=== PATIENT | female | born 1975 | race Caucasian/White ===

== ENCOUNTER → 2021-07-20 14:39 | Outpatient (CLI) | payer MEDICAID, SELFPAY ==
[2021-07-20 14:59] LABS: Amphetamine/Metha Screen,Urine Negative ng/ml (<1000); Barbiturates Screen,Urine Negative ng/ml (<200)
[2021-07-20 15:00] LABS: Benzodiazepines Screen,Urine Negative ng/ml (<200)
[2021-07-20 15:01] LABS: Cannabinoid Screen,Urine Negative ng/ml (<50); Cocaine Screen,Urine Negative ng/ml (<300)
[2021-07-20 15:02] LABS: Methadone Screen,Urine Negative ng/ml (<300)
[2021-07-20 15:03] LABS: Opiate Screen,Urine Negative ng/ml (<300); Phencyclidine Screen,Urine Negative ng/ml (<25)
== END ==
PROVIDERS: Visit Provider Family Medicine
DX: F41.9 Anxiety disorder, unspecified (principal)
CPT/HCPCS: 80305

== ENCOUNTER → 2021-11-26 16:58 | Outpatient (CLI) | payer MEDICAID, SELFPAY ==
[2021-11-26 19:10] LABS: Amphetamine/Metha Screen,Urine Negative ng/ml (<1000)
[2021-11-26 19:11] LABS: Barbiturates Screen,Urine Negative ng/ml (<200); Benzodiazepines Screen,Urine Positive ng/ml (<200)
[2021-11-26 19:12] LABS: Cannabinoid Screen,Urine Negative ng/ml (<50)
[2021-11-26 19:13] LABS: Cocaine Screen,Urine Negative ng/ml (<300); Methadone Screen,Urine Negative ng/ml (<300)
[2021-11-26 19:14] LABS: Opiate Screen,Urine Negative ng/ml (<300)
[2021-11-26 19:15] LABS: Phencyclidine Screen,Urine Negative ng/ml (<25)
== END ==
PROVIDERS: Visit Provider Family Medicine
DX: F41.9 Anxiety disorder, unspecified (principal)
CPT/HCPCS: 80305

== ENCOUNTER → 2021-12-09 12:54 | Outpatient (CLI) | payer MEDICAID, SELFPAY ==
--- NOTE | 2021-12-09 12:54 | CT_ITS ---
FINAL REPORT TECHNIQUE: Axial CT images were performed from the lung apices through the upper abdomen. Coronal reformats were submitted. This study was performed with techniques to keep radiation doses as low as reasonably achievable (ALARA). Individualized dose reduction techniques using automated exposure control or adjustment of mA and/or kV according to the patient's size were employed. CLINICAL HISTORY: pulmonary nodules smoker FINDINGS: There is no axillary adenopathy. There are mild borderline sized mediastinal and hilar nodes. Heart size is normal. There is a small pericardial effusion. No pleural effusion is identified. Limited images of the upper abdomen are unremarkable. There is mild emphysema. There are multiple bilateral noncalcified pulmonary nodules. There is a lateral right upper lobe nodule measuring 6 mm. There is a pleural-based nodule in the left lower lobe measuring 6 mm. Multiple other bilateral nodules are identified. There are calcified granulomas in the right lower lobe. Postoperative changes are seen of the right shoulder. IMPRESSION: Bilateral pulmonary nodules which are nonspecific. Recommend follow-up CT in 6 months. Reviewed, Interpreted and Dictated by Cam Sommer III, MD Transcribed by Ana Cade Authenticated by Cam Sommer III, MD on 12/09/2021 03:50:[address] [facility]
== END ==
PROVIDERS: PCP Nurse Practitioner Family; Visit Provider Family Medicine
DX: R91.8 Other nonspecific abnormal finding of lung field (principal)
CPT/HCPCS: 71250

== ENCOUNTER → 2022-03-03 09:05 | Outpatient (CLI) | payer MEDICAID, SELFPAY ==
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
== END ==
PROVIDERS: PCP Nurse Practitioner Family; Visit Provider Orthopaedic Surgery
DX: M25.511 Pain in right shoulder (principal)
CPT/HCPCS: 73030

== ENCOUNTER → 2022-05-10 13:44 | Outpatient (CLI) | payer MEDICAID, SELFPAY ==
--- NOTE | 2022-05-10 13:45 | CA_ITS ---
FINAL REPORT TECHNIQUE: Color Doppler, duplex Doppler and compression sonography of the right lower extremity venous system was performed. CLINICAL HISTORY: EDEMA FINDINGS: There is no evidence of deep venous thrombosis from the level of the groin to the calf. The veins are patent and compressible. IMPRESSION: No evidence of deep venous thrombosis right lower extremity. Reviewed, Interpreted and Dictated by Cam Sommer III, MD Transcribed by Lor Miller Authenticated and [facility]
== END ==
PROVIDERS: PCP Nurse Practitioner Family; Visit Provider Family Medicine
DX: M79.604 Pain in right leg (principal); M79.89 Other specified soft tissue disorders
CPT/HCPCS: 93971

== ENCOUNTER → 2022-05-17 13:25 | Outpatient (CLI) | payer MEDICAID, SELFPAY ==
--- NOTE | 2022-05-17 13:39 | XR_ITS ---
FINAL REPORT CLINICAL HISTORY: shoulder pain FINDINGS: RIGHT SHOULDER Three views were obtained. There is no acute fracture or dislocation. There is mild acromioclavicular and glenohumeral joint degenerative change. There are postoperative changes in the proximal humerus. No soft tissue abnormality is identified. IMPRESSION: Mild degenerative changes with no acute process. Reviewed, Interpreted and Dictated by Cam Sommer III, MD Transcribed by Ana Cade Authenticated and [facility]
[2022-05-17 15:59] LABS: Basophils # 0.1 K/mm3 (0-0.2); Basophils % 1.5 % (0.1-2.0); Eosinophils # 0.1 K/mm3 (0.0-0.4); Eosinophils % 0.9 % (0.1-12.0); Hematocrit 56.2 % (37.0-47.0); Hemoglobin 17.8 g/dL (12.2-16.2); Lymphocytes # 1.9 K/mm3 (0.7-4.5); Lymphocytes % 20.8 % (10-50); Mean Corpuscular HGB Conc 31.6 g/dL (31.8-35.4); Mean Corpuscular Hemoglobin 31.7 pg (27.0-31.2); Mean Corpuscular Volume 100.3 fl (81-99); Mean Platelet Volume 8.6 fl (7.4-10.4); Monocytes # 0.6 K/mm3 (0.1-1.0); Monocytes % 6.3 % (1.7-9.3); Neutrophils # 6.6 K/mm3 (1.8-7.8); Neutrophils % 70.5 % (37.0-80.0); Platelet Count 299 K/mm3 (142-424); Red Cell Distribution Width 15.8 % (11.5-17.5); White Blood Count 9.3 K/mm3 (4.8-10.8)
[2022-05-17 16:49] LABS: C-Reactive Protein 3.5 mg/L (0-4)
[2022-05-17 19:28] LABS: Erythrocyte Sedimentation Rate 1 mm/hr (0-20)
== END ==
PROVIDERS: Orthopaedic Surgery; PCP Nurse Practitioner Family; Visit Provider Physician Assistant Surgical
DX: M25.511 Pain in right shoulder (principal); G56.01 Carpal tunnel syndrome, right upper limb
CPT/HCPCS: 36415; 73030; 85025; 85651; 86140

== ENCOUNTER 2024-04-04 12:37 | Outpatient (CLI) | payer MEDICAID, SELFPAY ==
--- NOTE | 2024-04-04 12:59 | CA_ITS ---
FINAL REPORT TECHNIQUE: Color Doppler, duplex Doppler and compression sonography of the right lower extremity venous system was performed. CLINICAL HISTORY: calf tenderness, edema FINDINGS: There is no evidence of deep venous thrombosis from the level of the groin to the calf. The veins are patent and compressible. IMPRESSION: No evidence of deep venous thrombosis right lower extremity. Reviewed, Interpreted and Dictated by Cam Sommer III, MD Transcribed by Dayanara Matta Authenticated and [facility]
== END 2024-04-04 23:59 | disposition home or self-care (01) ==
LOC: RT 12:37
PROVIDERS: PCP Family Medicine; Visit Provider Family Medicine
DX: M79.89 Other specified soft tissue disorders (principal); R60.9 Edema, unspecified
CPT/HCPCS: 93971

== ENCOUNTER 2025-03-20 11:06 | Outpatient (CLI) | payer MEDICAID, SELFPAY ==
[2025-03-20 12:10] VITALS: BMI 30.1
--- NOTE | 2025-03-20 12:22 | ECG_ITS ---
APPROVED REPORT Exam: Resting ECG HR:92 bpm ECG Measurements Heart Rate 92 AXES SD 175 P 57 QRSd 72 QRS 98 QT 349 T 61 QTc 399 Conclusion SINUS RHYTHM ATRIAL ABNORMALITY BORDERLINE RIGHT AXIS DEVIATION [QRS AXIS > 90] LOW QRS VOLTAGE IN PRECORDIAL LEADS [QRS DEFLECTION < 1.0 mV IN CHEST LEADS] BORDERLINE ECG UNCONFIRMED REPORT Electronically signed by : Clint Pink MD 03/23/2025 08:06:51
[2025-03-20 12:41] LABS: Basophils % 0.5 % (0.1-2.0); Eosinophils # 0.1 Kmm3 (0.0-0.4); Eosinophils % 1.2 % (0.1-12.0); Hematocrit 45.6 % (37.0-47.0); Hemoglobin 15.3 g/dL (12.2-16.2); Lymphocytes # 1.8 K/mm3 (0.7-4.5); Mean Corpuscular HGB Conc 33.6 g/dL (31.8-35.4); Mean Corpuscular Volume 92.5 fl (81-99); Mean Platelet Volume 10.2 fl (7.4-10.4); Monocytes # 0.4 K/mm3 (0.1-1.0); Monocytes % 4.8 % (1.7-9.3); Neutrophils % 70.9 % (37.0-80.0); Nucleated Red Blood Cells # 0 10^3/uL; Nucleated Red Blood Cells % 0 %; Platelet Count 218 K/mm3 (142-424); Red Blood Count 4.93 M/mm3 (4.20-5.40); Red Cell Distribution Width 13.7 % (11.5-17.5); Red Cell Distribution Width-SD 46.4 fL; White Blood Count 8.4 K/mm3 (4.8-10.8)
[2025-03-20 12:48] LABS: Chloride 109 mmol/L (98-107); Potassium 3.5 mmoL/L (3.5-5.1); Sodium 139 mmol/L (136-145)
[2025-03-20 12:51] LABS: Blood Urea Nitrogen 7 mg/dl (7-17); Creatinine Clearance Estimated 118 mL/min (50-200); Estimated Glomerular Filt Rate 76 ml/min (>60); GFR (African American) 92 ML/MIN (>60)
[2025-03-20 12:52] LABS: Anion Gap 9.5 mEq/L (5-15); Calcium 9.5 mg/dl (8.4-10.2); Carbon Dioxide 24 mmol/L (22.0-30.0); Glucose 87 mg/dl (74-100)
== END 2025-03-20 23:59 | disposition home or self-care (01) ==
LOC: PREOP 11:06
PROVIDERS: PCP Family Medicine; Visit Provider Surgery
DX: L72.3 Sebaceous cyst (principal); R94.31 Abnormal electrocardiogram [ECG] [EKG]
CPT/HCPCS: 80048; 85025; 93005

== ENCOUNTER 2025-03-24 08:20 | Day surgery (SDC) | payer MEDICAID, SELFPAY ==
[2025-03-20 14:29] VITALS: BMI 30.1
[2025-03-24] VITALS (11 sets, daily range): BP systolic 110–136; BP diastolic 51–87; PULSE 74–90; RESP 14–18; TEMP 36.2–38; O2SAT 92–98
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
[2025-03-24] MEDS: CEFAZOLIN SODIUM 2 GM in 0.9 % SODIUM CHLORIDE 100 ML IV (09:15)
[2025-03-24] MEDS: ROPIVACAINE 0.5% 30ML VIAL 150 MG (09:31)
[2025-03-24] MEDS: LIDOCAINE 1% 20ML MDV 20 ML (09:32)
--- NOTE | 2025-03-24 09:46 | P.OP_ITS ---
Date of procedure: 03/24/25 Pre-op Diagnosis:: Right axillary cyst Post-op Diagnosis:: Same Procedure performed:: Excision of right axillary inclusion cyst (excisional length 1.5 cm) with intermediate complexity closure Surgeon:: Cam Mcginnis MD UTILITY TELLER:: Harjinder Rouse Anesthesia: LMA Estimated blood loss (mL): 2 Operative findings:: Consistent with subdermal inclusion cyst Operative note:: Consent was obtained patient was taken the operating room. She was positioned in supine position. General anesthesia was induced. The area was prepped and draped in the standard surgical fashion. It was marked with a skin marker. An elliptical incision was made. Careful dissection was carried down through the thin skin and dermis at which point well-circumscribed intact cyst capsule was encountered. Cyst capsule was excised from the surrounding subcutaneous tissues using scissor dissection. It was excised with the overlying skin ellipse intact. It was sent off as specimen. Hemostasis was achieved electrocautery. Deep dermal tissues were closed with interrupted 3-0 Vicryl sutures. Skin was closed with Dermabond. Steri-Strips and dressings were applied. Condition: stable Disposition: PACU Complications:: None immediately apparent
--- NOTE | 2025-03-24 09:57 | EXP.ANES.I ---
[facility] Anesthesia Record Part I Anesthesia Record I Intake, IV Amount: 400 Hydration: Adequate Estimated blood loss (mL): 2 Urine output (mL): 0 Blood Products used (#): none Blood Pressure: 116/72 SaO2: 92 Pulse Rate: 75 Airway Patency: Patent Respiratory Rate: 14 Temperature: 97.2 F Patient is:: Drowsy and Stable Stable to PACU at:: 09:48
--- NOTE | 2025-03-25 11:02 | P.PNANES_ITS ---
[facility] Anesthesia Record Part II Anesthesia Record Part II Discharge Time: 10:45 Destination: Surgical Day Care (OP Surgery) PACU nurse assessment reviewed?: Yes Patient Condition:: Good Anesthesia Complications:: None Swallowing reflex intact?: Yes Airway Patency: Patent Cyanosis?: No Blood Pressure: 118/74 SaO2: 96 Respiratory Rate: 17 Pulse Rate: 74 Temperature: 97.2 F Mental Status: Alert & Oriented Pain level:: 0 Nausea and/or vomitting:: None Intake, IV Amount: 0 Hydration: Adequate
[2025-03-25 11:03] VITALS: BP 118/74; PULSE 74; RESP 17; TEMP 36.2; O2SAT 96
== END 2025-03-24 11:13 | disposition home or self-care (01) ==
PROVIDERS: PCP Family Medicine; Visit Provider Surgery
PROC: (CPT 11402; principal; 2025-03-24 09:45)
DX: L72.0 Epidermal cyst (principal); M79.621 Pain in right upper arm
CPT/HCPCS: 11402; 12031; 96374; J0690; J1100; J2250; J2405; J3010